=== PATIENT | male | born 1960 | race Caucasian/White ===

== ENCOUNTER 2018-07-16 19:38 | Emergency (ER) | payer BC ==
[~2018-07-16] VITALS: Ht 165.1 cm; Wt 93.6 kg
[~2018-07-16 19:38] MED LIST: ADVIL200 MG PO; ASPIRIN E.C. 8181 MG PO; CEPHALEXIN500 M1 PO; NO HOME MEDICATIONS; NORCO 325 MG-51 TAB PO; SEPTRA DS 8001 TAB PO; TAMIFLU 75MG75 MG PO; ZITHROMAX 250M250 MG PO; ZOFRAN 4MG T4 MG/TAB PO
[2018-07-16 19:40] VITALS: BP 131/83; TEMP 97.7
[2018-07-16] MEDS ORDERED: CARAFATE S1 GM/10 ML PO (20:58)
[2018-07-16 21:28] VITALS: PULSE 82
== END 2018-07-16 21:27 | disposition home or self-care (01) ==
LOC: COL.ER 19:38
DX: T18.128A Food in esophagus causing other injury, initial encounter (principal); S27.818A Other injury of esophagus (thoracic part), initial encounter; J44.9 Chronic obstructive pulmonary disease, unspecified; F17.210 Nicotine dependence, cigarettes, uncomplicated

== ENCOUNTER 2020-06-17 14:24 | Outpatient (CLI) | payer BC ==
[~2020-06-17] VITALS: Ht 165.1 cm; Wt 98.0 kg
[~2020-06-17 14:24] MED LIST changes: +CARAFATE S1 GM/10 ML PO
[2020-06-17 15:02] VITALS: BP 120/68; PULSE 86; TEMP 98.1
[2020-06-17 15:15] VITALS: BP 111/70; PULSE 78
[2020-06-17] MEDS ORDERED: ANORO IH (15:20)
[2020-06-17] MEDS ORDERED: IPRATROPIUM BROM3 M1 IH (15:21)
[2020-06-17 15:30] VITALS: BP 133/97; PULSE 84; TEMP 98.3
[2020-06-17 16:00] VITALS: BP 112/73; PULSE 81
[2020-06-17 16:30] VITALS: BP 108/74; PULSE 68
[2020-06-17 17:00] VITALS: BP 112/72; PULSE 81; TEMP 97.2
== END 2020-06-17 18:00 | disposition home or self-care (01) ==
LOC: EUO 14:24
DX: U07.1 COVID-19 (principal)
CPT/HCPCS: J7050

== ENCOUNTER 2021-07-21 19:17 | Emergency (ER) | payer OTHER ==
[~2021-07-21] VITALS: Ht 165.1 cm; Wt 95.5 kg
[~2021-07-21 19:17] MED LIST changes: +ANORO IH; +IPRATROPIUM BROM3 M1 IH
[2021-07-21 19:29] VITALS: TEMP 98.1
[2021-07-21 20:03] LABS: COLLECTION METHOD CLEAN CATCH
[2021-07-21 20:12] LABS: MUCOUS Present (NOT PRESENT); SQUAMOUS EPITHELIAL None Seen /hpf (0-10); URINE BACTERIA None Seen /hpf (NONE SEEN); URINE RBC 0-2 /hpf (0-2)
[2021-07-21 20:13] LABS: PH 5 (5-8); URINE APPEARANCE Clear (CLEAR/HAZY); URINE BILIRUBIN Negative (NEGATIVE); URINE BLOOD Negative (NEGATIVE); URINE COLOR Yellow (YELLOW); URINE GLUCOSE Negative (NEGATIVE); URINE KETONE Negative (NEGATIVE); URINE LEUKOCYTE ESTERASE Negative (NEGATIVE); URINE NITRATE Negative (NEGATIVE); URINE PROTEIN(semi-quant) Negative (NEGATIVE); URINE UROBILINOGEN Negative (NEGATIVE)
[2021-07-21] MEDS ORDERED: FLEXERIL 1010 MG/TAB PO (20:45)
[2021-07-21 21:15] VITALS: BP 134/86; PULSE 86
== END 2021-07-21 21:15 | disposition home or self-care (01) ==
LOC: COL.ER 19:17
PROVIDERS: Emergency Medicine
DX: S30.1XXA Contusion of abdominal wall, initial encounter (principal); S20.211A Contusion of right front wall of thorax, initial encounter; J44.9 Chronic obstructive pulmonary disease, unspecified; Z79.899 Other long term (current) drug therapy; W17.89XA Other fall from one level to another, initial encounter; Y92.59 Other trade areas as the place of occurrence of the external cause; Y99.0 Civilian activity done for income or pay
CPT/HCPCS: A9284

== ENCOUNTER 2021-08-31 16:08 | Outpatient (RCR) | payer OTHER ==
[~2021-08-31 16:08] MED LIST changes: +FLEXERIL 1010 MG/TAB PO
== END 2021-09-03 | disposition home or self-care (01) ==
LOC: WSOH
DX: S30.0XXD Contusion of lower back and pelvis, subsequent encounter (principal); W01.198D Fall on same level from slipping, tripping and stumbling with subsequent striking against other object, subsequent encounter; Y99.0 Civilian activity done for income or pay; J44.9 Chronic obstructive pulmonary disease, unspecified; F32.A Depression, unspecified; Z98.890 Other specified postprocedural states; Z79.899 Other long term (current) drug therapy

== ENCOUNTER 2021-09-29 15:35 | Outpatient (RCR) | payer OTHER, BC | END 2021-10-03 | disposition home or self-care (01) | LOC: WSPT | DX: S30.0XXD Contusion of lower back and pelvis, subsequent encounter (principal); S20.221D Contusion of right back wall of thorax, subsequent encounter; W01.198D Fall on same level from slipping, tripping and stumbling with subsequent striking against other object, subsequent encounter ==

== ENCOUNTER → 2021-10-27 16:30 | Outpatient (RCR) | payer OTHER, BC | END | disposition home or self-care (01) | LOC: WSPT 10-13 15:24 | DX: S20.221D Contusion of right back wall of thorax, subsequent encounter (principal); S30.0XXD Contusion of lower back and pelvis, subsequent encounter; W01.198D Fall on same level from slipping, tripping and stumbling with subsequent striking against other object, subsequent encounter ==

== ENCOUNTER 2021-11-10 15:27 | Outpatient (RCR) | payer OTHER | END 2021-12-03 | disposition home or self-care (01) | LOC: WSOH | DX: S20.221D Contusion of right back wall of thorax, subsequent encounter (principal); S30.0XXD Contusion of lower back and pelvis, subsequent encounter; W01.198D Fall on same level from slipping, tripping and stumbling with subsequent striking against other object, subsequent encounter; J44.9 Chronic obstructive pulmonary disease, unspecified; F32.A Depression, unspecified; Z98.890 Other specified postprocedural states; Y99.0 Civilian activity done for income or pay ==

== ENCOUNTER → 2022-09-06 | Outpatient (CLI) | payer BC | LOC: COL.RAD 15:00 | DX: Z12.2 Encounter for screening for malignant neoplasm of respiratory organs (principal); F17.200 Nicotine dependence, unspecified, uncomplicated ==

== ENCOUNTER 2023-08-16 20:32 | Inpatient (IN) | payer MEDICARE, BC ==
[~2023-08-16] VITALS: Ht 170.2 cm; Wt 104.0 kg
[~2023-08-16 20:32] MED LIST changes: +DEPO-TESTOS200 MG/M1 IM; +LEXAPRO20 MG PO; +NICODERM C21 MG/PATC TD; +PEPCID 20MG TAB20 MG PO; +PREDNISONE10 MG PO; +PROAIR HFA0.09 MG/AC IH; +TRELEGY ELLIPT1 EAC1 IH; +TYLENOL 325MG325 MG PO
[2023-08-16] MEDS ORDERED: NS 1,000 ML IV SCH (20:45)
[2023-08-16] MEDS ORDERED: Azithromycin 500 MG in NS 250 ML IV SCH (21:00)
[2023-08-16 21:07] LABS: BASO % 0.4 % (0.0-2.0); EOS # 0.1 K/mm3 (0.0-0.7); EOS % 0.7 % (0.0-4.0); GRAN # 8.2 K/mm3 (1.4-6.5); LYMPH # 1.2 K/mm3 (1.2-3.4); LYMPH % 11.7 % (20.0-51.0); MEAN CELL VOLUME 98 fl (80.0-100.0); MEAN CORPUSCULAR HGB CONC 33 g/dl (33.0-37.0); MEAN PLATELET VOLUME 9.8 fl (7.4-10.4); MONO # 0.7 K/mm3 (0.1-0.6); PLATELET COUNT 189 K/mm3 (130-400); RED BLOOD COUNT 5.76 M/mm3 (4.20-5.60); REDCELL DISTRIBUTION WIDTH-CV 13.8 % (11.5-14.5)
[2023-08-16 21:12] LABS: HEMATOCRIT 56.2 % (42.0-52.0); HEMOGLOBIN 18.7 g/dl (13.5-18.0); MEAN CORPUSCULAR HEMOGLOBIN 32 pg (27-31)
[2023-08-16 21:15] LABS: INR 1.2 (0.8-3.0); PROTHROMBIN TIME 12.6 SECONDS (9.7-12.8)
[2023-08-16] MEDS ORDERED: methylPREDNISolone Sod Succ 125 MG/2 ML VIAL IV ONE (21:15)
[2023-08-16] MEDS ORDERED: Acetaminophen 325 MG TAB PO ONE (21:15)
[2023-08-16] MEDS ORDERED: Albuterol/Ipratropium 3 MG-0.5 MG/3 ML Neb Soln IH ONE (21:15)
[2023-08-16 21:17] LABS: PARTIAL THROMBOPLASTIN TIME 28.1 SECONDS (26.0-37.0)
[2023-08-16 21:25] LABS: ALANINE AMINOTRANSFERASE 21 U/L (0-55); ALKALINE PHOSPHATASE 90 U/L (40-150); ANION GAP 11 mmol/L (7-16); AST,SGOT 20 U/L (5-34); BILIRUBIN,TOTAL 0.8 mg/dL (0.2-1.2); BLOOD UREA NITROGEN 21 mg/dL (8-26); CALCIUM 10.2 mg/dL (8.4-10.2); CARBON DIOXIDE 27 mmol/L (23-31); CHLORIDE 102 mmol/L (98-107); CREATININE, serum 1.16 mg/dL (0.72-1.25); GLUCOSE 170 mg/dL (70-99); MAGNESIUM 2.1 mg/dL (1.6-2.6); POTASSIUM 4.3 mmol/L (3.5-4.5); SODIUM 140 mmol/L (136-145); TOTAL PROTEIN 7.5 gm/dL (6.2-8.1)
[2023-08-16 21:32] LABS: TROPONIN-I < 0.010 ng/mL (0.00-0.033)
[2023-08-16] MEDS ORDERED: cefTRIAXone 1 G in Water For Injection,Sterile 10 ML IV ONE (22:15)
[2023-08-16 22:45] LABS: COLLECTION METHOD CLEAN CATCH
[2023-08-16 22:54] LABS: PH 5.5 (5.0-8.5); URINE APPEARANCE CLEAR (CLEAR/HAZY); URINE BLOOD NEGATIVE (NEGATIVE); URINE COLOR Dark Yellow (YELLOW); URINE GLUCOSE NEGATIVE (NEGATIVE); URINE KETONE 1+ (NEGATIVE); URINE NITRATE NEGATIVE (NEGATIVE); URINE PROTEIN(semi-quant) TRACE (NEGATIVE)
[2023-08-16] MEDS ORDERED: VITAMIN D362.5 MC1 PO (23:06)
[2023-08-16] MEDS ORDERED: VITAMIN C500 MG PO (23:07)
[2023-08-16] MEDS ORDERED: QUALITY CHOICE1 T22 PO (23:07)
[2023-08-16] MEDS ORDERED: REVATIO20 MG PO (23:08)
--- NOTE | 2023-08-16 23:12 | NUR ---
PATIENT ADMITTED TO ROOM 315. VS ARE: 149/93 BP, 93 O2 ON 3L NC, 105 P, 99 TEMP AND 18 RR. NS BOLUS RUNNING IN RT HAND AC. PATIENT IS AXO X4 AND TALKATIVE. DAUGHTER ACCOMPANIED HIM TO ROOM. PATIENT DENIES PAIN OR NEEDS AND IS ORIENTED TO ROOM. CALL LIGHT WITHIN REACH.
[2023-08-16] MEDS ORDERED: Acetaminophen 325 MG TAB PO PRN (23:15)
[2023-08-16] MEDS ORDERED: Albuterol/Ipratropium 3 MG-0.5 MG/3 ML Neb Soln IH PRN (23:15)
[2023-08-16] MEDS ORDERED: Ondansetron 4 MG/2 ML VIAL IV PRN ×2 (23:15)
[2023-08-16] MEDS ORDERED: NS 1,000 ML IV ONE (23:30)
[2023-08-17] VITALS (10 sets, daily range): BP systolic 125–145; BP diastolic 65–97; PULSE 85–102; TEMP 97.7–99.1
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
--- NOTE | 2023-08-17 04:46 | NUR ---
PATIENT LT UPPER ARM IV DISLODGED. CATHETER INTACT.
[2023-08-17] MEDS ORDERED: Albuterol/Ipratropium 3 MG-0.5 MG/3 ML Neb Soln IH SCH ×2 (05:00→08:00)
[2023-08-17] MEDS ORDERED: methylPREDNISolone Sod Succ 40 MG/ML VIAL IV SCH (05:30)
[2023-08-17 06:41] LABS: HEMATOCRIT 51.2 % (42.0-52.0); HEMOGLOBIN 16.9 g/dl (13.5-18.0); MEAN CELL VOLUME 97 fl (80.0-100.0); MEAN CORPUSCULAR HEMOGLOBIN 32 pg (27-31); MEAN CORPUSCULAR HGB CONC 33 g/dl (33.0-37.0); MEAN PLATELET VOLUME 10.3 fl (7.4-10.4); PLATELET COUNT 172 K/mm3 (130-400); RED BLOOD COUNT 5.27 M/mm3 (4.20-5.60); REDCELL DISTRIBUTION WIDTH-CV 13.8 % (11.5-14.5)
[2023-08-17 06:58] LABS: ANION GAP 8 mmol/L (7-16); BLOOD UREA NITROGEN 18 mg/dL (8-26); CALCIUM 9.2 mg/dL (8.4-10.2); CARBON DIOXIDE 24 mmol/L (23-31); CHLORIDE 108 mmol/L (98-107); CREATININE, serum 0.81 mg/dL (0.72-1.25); GLUCOSE 169 mg/dL (70-99); POTASSIUM 4.1 mmol/L (3.5-4.5); SODIUM 140 mmol/L (136-145)
[2023-08-17] MEDS ORDERED: Formoterol Neb Soln 20 MCG/2 ML UD IH SCH (07:00)
[2023-08-17] MEDS ORDERED: Arformoterol 15 MCG **** subs to Formoterol 20 MCG IH SCH (07:00)
[2023-08-17 07:06] LABS: TROPONIN-I 6 HR POST INITIAL < 0.010 ng/mL (0.00-0.033)
[2023-08-17 07:13] LABS: BAND 2 % (0-10); HYPOCHROMIA 1+; LYMPHOCYTE 5 % (20.0-51.0); NEUTROPHILS 92 % (42.0-75.2); PLATELET ESTIMATE NORMAL (NORMAL)
[2023-08-17] MEDS ORDERED: Sennosides/Docusate 8.6-50 MG TAB PO SCH (09:00)
--- NOTE | 2023-08-17 10:35 | NUR ---
Several visit attempts; Patient surrounded by family, one of which using the telephone. Die Cast Patternmaker left a card offering God's blessings and information regarding the availability of Spiritual Care at our [facility].
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
[2023-08-17] MEDS ORDERED: Escitalopram 10 MG TAB PO SCH (11:31)
[2023-08-17] MEDS ORDERED: Umeclidinium/Vilanterol 62.5-25 MCG INHALATION/INHALER IH SCH (12:00)
--- NOTE | 2023-08-17 14:40 | NUR ---
Communications Tech assisted patient to complete DPOA document. Original and copies provided to patient, copy placed on chart.
[2023-08-17] MEDS ORDERED: dexAMETHasone 10 MG/ML VIAL IV SCH (16:00)
[2023-08-17] MEDS ORDERED: Budesonide Neb Susp 0.5 MG/2 ML AMP IH SCH (19:00)
--- NOTE | 2023-08-17 20:00 | NUR ---
Assessment complete. A&Ox3. Denies pain/nausea/shortness of breath. VS stable. Currently on 2L/NC. INT to right hand flushes without difficulty. Plan of cre discussed for this shift to include meds/calling for questions/concerns. Verbalizes understanding. Call light in reach. Will monitor.
[2023-08-17] MEDS ORDERED: cefTRIAXone 1 G in Water For Injection,Sterile 10 ML IV SCH (21:00)
[2023-08-18] VITALS (13 sets, daily range): BP systolic 116–165; BP diastolic 66–94; PULSE 82–98; TEMP 97.2–97.9
--- NOTE | 2023-08-18 04:52 | NUR ---
Patient had an uneventful night. Denied pain/nausea/short of breath with activity. Currently on 2L/NC. VS remained stable. INT to right hand flushes without difficulty. Denies current needs. Call light in reach. Will monitor.
--- NOTE | 2023-08-18 06:48 | NUR ---
PT RESTING IN BED. PT IS ON RA. PT IS NOT ON TELE. PT IS AXOX3. PT HAS CALL LIGHT AND INSTRUCTED TO CALL WITH ALL NEEDS.
[2023-08-18 06:52] LABS: BASO % 0.1 % (0.0-2.0); GRAN # 10.6 K/mm3 (1.4-6.5); GRAN % 86.2 % (42.2-75.2); HEMATOCRIT 50.3 % (42.0-52.0); HEMOGLOBIN 16.7 g/dl (13.5-18.0); LYMPH % 8.3 % (20.0-51.0); MEAN CELL VOLUME 98 fl (80.0-100.0); MEAN CORPUSCULAR HEMOGLOBIN 33 pg (27-31); MEAN CORPUSCULAR HGB CONC 33 g/dl (33.0-37.0); MEAN PLATELET VOLUME 10.3 fl (7.4-10.4); MONO # 0.6 K/mm3 (0.1-0.6); PLATELET COUNT 186 K/mm3 (130-400); RED BLOOD COUNT 5.11 M/mm3 (4.20-5.60)
[2023-08-18 07:10] LABS: CALCIUM 9.2 mg/dL (8.4-10.2); CREATININE, serum 0.8 mg/dL (0.72-1.25); POTASSIUM 4.1 mmol/L (3.5-4.5)
[2023-08-18] MEDS ORDERED: dexAMETHasone 10 MG/ML VIAL IV SCH (09:00)
--- NOTE | 2023-08-18 20:00 | NUR ---
Assessment complete. A&Ox3. Denies pain/nausea/shortness of breath. VS stable. Currently on RA. INT to right [id number] without difficulty. Tolreating diet. States he has has loose stools today and rectum area is sore. Provided with barrier cream with instruction on use. Plan of care discussed for this shift to include meds/CPAP/calling for questions/concerns. Verbalizes understanding. Call light in reach. Will monitor.
--- NOTE | 2023-08-18 23:30 | NUR ---
Patient noted to have elevated BP per PCT. Rechecked at this time manually by this [id number] flow sheet.
[2023-08-19 00:53] VITALS: BP_SYST 165
[2023-08-19 03:05] VITALS: BP 112/70; PULSE 88; TEMP 97.8
[2023-08-19 03:17] VITALS: BP_SYST 112
--- NOTE | 2023-08-19 05:45 | NUR ---
Patient had an uneventful night. Denied pain/nausea/shortness of breath. Remained on RA. BS stable. Had a few loose stools yesterday-barrier cream provided. INT to right hand flushes without difficulty. Denies current questions/concerns. Call light in reach. Will monitor.
[2023-08-19 06:18] LABS: BASO % 0.2 % (0.0-2.0); EOS % 0.1 % (0.0-4.0); GRAN # 8.4 K/mm3 (1.4-6.5); GRAN % 78.5 % (42.2-75.2); HEMATOCRIT 48.2 % (42.0-52.0); LYMPH # 1.6 K/mm3 (1.2-3.4); LYMPH % 14.9 % (20.0-51.0); MEAN CELL VOLUME 98 fl (80.0-100.0); MEAN CORPUSCULAR HEMOGLOBIN 33 pg (27-31); MEAN CORPUSCULAR HGB CONC 33 g/dl (33.0-37.0); MEAN PLATELET VOLUME 10.1 fl (7.4-10.4); MONO # 0.6 K/mm3 (0.1-0.6); MONO % 5.8 % (1.7-9.3); PLATELET COUNT 193 K/mm3 (130-400); REDCELL DISTRIBUTION WIDTH-CV 14.1 % (11.5-14.5)
[2023-08-19 06:25] LABS: CALCIUM 8.9 mg/dL (8.4-10.2); CREATININE, serum 0.8 mg/dL (0.72-1.25); POTASSIUM 3.6 mmol/L (3.5-4.5)
[2023-08-19 07:20] VITALS: BP 126/89; PULSE 97; TEMP 97.6
[2023-08-19] MEDS ORDERED: OMNICEF 300MG300 MG PO (08:15)
[2023-08-19] MEDS ORDERED: PREDNISONE20 MG PO (08:17)
[2023-08-19 08:33] VITALS: BP_SYST 126
--- NOTE | 2023-08-19 08:40 | NUR ---
PATIENT ALERT AND ORIENTED X4. PATIENT ON ROOM AIR. PATIENT VERY TALKITATIVE THIS MORNING. PATIENT EXCITEDD TO BE DISCHARGE THIS MORNING. DENIES PAIN. HAS SOME ON AND OFF COUGH. CALL LIGHT WITHIN REACH. BED AT LOWEST POSITION.
[2023-08-19] MEDS ORDERED: predniSONE 20 MG TAB PO SCH (09:00)
--- NOTE | 2023-08-19 10:35 | NUR ---
PATIENT DISCHARGE INSTRUCTIONS GIVEN. PATIENT QUESTIONS ANSWERED. NO FURTHER CONCERNS AT THIS TIME. PATIENT IV REMOVED. PATIENT ESCORTED OUT OF BUILDING BY [facility].
== END 2023-08-19 10:43 | disposition home or self-care (01) | DRG 189 ==
LOC: COL.ER 20:32 → MEDICAL 23:11
PROVIDERS: Family Medicine; Physician Assistant; ADMIT Internal Medicine
DX: J96.21 Acute and chronic respiratory failure with hypoxia (principal); J44.1 Chronic obstructive pulmonary disease with (acute) exacerbation; Z20.822 Contact with and (suspected) exposure to COVID-19; E66.01 Morbid (severe) obesity due to excess calories; J20.9 Acute bronchitis, unspecified; E86.0 Dehydration; F32.A Depression, unspecified; Z88.0 Allergy status to penicillin; Z87.891 Personal history of nicotine dependence; Z99.81 Dependence on supplemental oxygen; Z79.899 Other long term (current) drug therapy; Z99.89 Dependence on other enabling machines and devices; Z68.39 Body mass index [BMI] 39.0-39.9, adult; Z23 Encounter for immunization
CPT/HCPCS: G0378; J0456; J0696; J1100; J1650; J2920; J2930; J7030; J7050; J7512

== ENCOUNTER → 2023-09-15 | Outpatient (CLI) | payer MEDICARE, BC ==
[~2023-09-15] MED LIST changes: +OMNICEF 300MG300 MG PO; +PREDNISONE20 MG PO; +QUALITY CHOICE1 T22 PO; +REVATIO20 MG PO; +VITAMIN C500 MG PO; +VITAMIN D362.5 MC1 PO
== END ==
LOC: COL.RAD 09:03
DX: Z13.6 Encounter for screening for cardiovascular disorders (principal); Z12.2 Encounter for screening for malignant neoplasm of respiratory organs; F17.200 Nicotine dependence, unspecified, uncomplicated